=== PATIENT | female | born 1935 | race Caucasian/White ===

== ENCOUNTER 2016-08-15 20:21 | Emergency (ER) | payer MEDICARE ==
[~2016-08-15] VITALS: Ht 170.2 cm; Wt 70.0 kg
[~2016-08-15 20:21] MED LIST: ANTI25TA2 PO; ASPI81 PO; ATOR20TA42 PO; FLON0.053; LORA10TA7 PO; SULF1TAB47 PO; ZOFR4TAB3 SL
[2016-08-15 20:53] VITALS: BP 180/85; PULSE 86; RESP 16; TEMP 97.9; O2SAT 97
[2016-08-15] MEDS ORDERED: LISI10TA3 PO (22:18)
[2016-08-15] MEDS ORDERED: LIPI20TA PO (22:18)
[2016-08-15 22:19] VITALS: BP 180/85; PULSE 86; RESP 18; TEMP 97.9; O2SAT 97
[2016-08-15] MEDS ORDERED: CIPR-9 PO (22:22)
--- NOTE | 2016-08-15 22:33 | PD ---
HPI Chief Complaint: Complaint Time Seen by Provider: 22:11 Travel History International Travel<30 days: No Contact w/Intl Traveler<30days: No Traveled to known affect area: No History of Present Illness HPI Patient is an 81-year-old female who presents to emergency room with complaints of urinary urgency, frequency as well as dysuria. Patient denies hematuria. Patient denies flank pain. Patient reports that she has had these symptoms since July 29, reports that she was seen at urgent care center and was started on ciprofloxacin 250 mg for 10 days. Patient reports that she completed a full course of antibiotics and still had symptoms and went back to urgent care center and reports that her dose was increased to ciprofloxacin 500 mg for 10 days. Patient reports that she is on her last day of her antibiotics and is still symptomatic. Reports that she is here for vacation and can't enjoy it with her urinary symptoms. Patient denies any fevers or chills, denies any nausea or vomiting. Patient denies any abdominal pain. Patient reports that urine cultures were not sent from the urgent care. Patient with no other complaints other than her urinary urgency and frequency which has been ongoing for the past 20 days. PFSH Past Medical History Cardiovascular Problems: Yes High Cholesterol: Yes Hypertension: Yes Respiratory: Yes (ENVIRONMENTAL ALLERGIES- ) ?: Not Menopausal: Yes Past Surgical History Surgical History: No Previous Surgery Social History Alcohol Use: Yes (OCCASIONAL) Tobacco Use: No Substance Use: No Allergies-Medications (Allergen,Severity, Reaction): Coded Allergies: Bactrim (Verified Allergy, Severe, 08/15/16) Peanut (Verified Allergy, Severe, Rash, 08/07/13) Penicillin (Verified Allergy, Severe, HIVES, 08/07/13) Reported Meds & Prescriptions Reported Meds & Active Scripts Active Reported Cipro (Ciprofloxacin HCl) 500 Mg Tab 500 Mg PO BID Lipitor (Atorvastatin Calcium) 20 Mg Tab 20 Mg PO DAILY Lisinopril 10 Mg Tab 10 Mg PO BID Review of Systems General / Constitutional: No: Fever Eyes: No: Visual changes HENT: No: Headaches Cardiovascular: No: Chest Pain or Discomfort Respiratory: No: Shortness of Breath Gastrointestinal: No: Abdominal Pain Genitourinary: Positive: Urgency, Frequency, Dysuria, Hesitancy, No: Discharge , Vaginal Bleeding Musculoskeletal: No: Pain Skin: No Rash Neurologic: No: Weakness Psychiatric: No: Depression Endocrine: No: Polydipsia Hematologic/Lymphatic: No: Easy Bruising Physical Exam Narrative GENERAL: NAD, Nontoxic SKIN: Warm and dry. HEAD: Atraumatic. Normocephalic. EYES: Pupils equal and round. No scleral icterus. No injection or drainage. ENT: No nasal bleeding or discharge. Mucous membranes pink and moist. NECK: Trachea midline. No JVD. CARDIOVASCULAR: Regular rate and rhythm. No murmur appreciated. RESPIRATORY: No accessory muscle use. Clear to auscultation. Breath sounds equal bilaterally. GASTROINTESTINAL: Abdomen soft, non-tender, nondistended. Patient with no flank pain MUSCULOSKELETAL: No obvious deformities. No clubbing. No cyanosis. No edema. NEUROLOGICAL: Awake and alert. No obvious cranial nerve deficits. Motor grossly within normal limits. Normal speech. PSYCHIATRIC: Appropriate mood and affect; insight and judgment normal. Data Data Last Documented VS Vital Signs Date Time Temp Pulse Resp B/P Pulse Ox O2 Delivery O2 Flow Rate FiO2 08/15/16 22:23 86 18 08/15/16 22:19 97.9 180/85 97 Orders Urinalysis - C+S If Indicated (08/15/16 22:18) Urine Culture (08/15/16 22:45) Lidocaine 1% Inj (50 Ml) (Xylocaine 1% I (08/15/16 23:15) Ceftriaxone Inj (Rocephin Inj) (08/15/16 23:15) Labs Laboratory Tests Test 08/15/16 22:45 Urine Color YELLOW Urine Turbidity CLEAR Urine pH 6.0 Urine Specific [place] 1.008 Urine Protein NEG mg/dL Urine Glucose (UA) NEG mg/dL Urine Ketones NEG mg/dL Urine Occult Blood TRACE Urine Nitrite NEG Urine Bilirubin NEG Urine Leukocyte Esterase SMALL Urine RBC 0-3 /hpf Urine WBC 3-5 /hpf Urine WBC Clumps OCC Urine Squamous Epithelial > 8 /hpf Cells Urine Bacteria RARE /hpf Microscopic Urinalysis Comment CULTURE INDICATED MDM Medical Decision Making Medical Screen Exam Complete: Yes Emergency Medical Condition: Yes Interpretation(s) Vital Signs Date Time Temp Pulse Resp B/P Pulse Ox O2 Delivery O2 Flow Rate FiO2 08/15/16 22:23 86 18 08/15/16 22:19 97.9 86 18 180/85 97 08/15/16 20:53 97.9 86 16 180/85 97 Differential Diagnosis UTI, pyelonephritis, cervicitis Narrative Course 81-year-old female who presents to emergency room with complaints of dysuria, urinary urgency or frequency for the past 20 days. Patient has failed outpatient with cipro 250 mg for 10 days as well as Cipro 500 mg for 10 days. Patient here as she still has dysuria, urinary urgency and frequency. Patient with no flank pain at this time, patient with no fevers or chills or any other pains. Plan to obtain UA at this time and sent for urine culture. Laboratory Tests Test 08/15/16 22:45 Urine Color YELLOW (YELLW/STRAW) Urine Turbidity CLEAR (CLEAR) Urine pH 6.0 (5.0-8.5) Urine Specific [place] 1.008 (1.002-1.035) Urine Protein NEG mg/dL (NEG-TRACE) Urine Glucose (UA) NEG mg/dL (NEG) Urine Ketones NEG mg/dL (NEG) Urine Occult Blood TRACE (NEG) Urine Nitrite NEG (NEG) Urine Bilirubin NEG (NEG) Urine Leukocyte Esterase SMALL (NEG) Urine RBC 0-3 /hpf (0-3) Urine WBC 3-5 /hpf (0-5) Urine WBC Clumps OCC (NONE) Urine Squamous Epithelial > 8 /hpf (0-5) Cells Urine Bacteria RARE /hpf (NONE) Microscopic Urinalysis Comment CULTURE INDICATED UC sent Patient reports that she has a history of penicillin allergy, reports that she had a breakout of rash a very long time ago, reports no airway compromise. Plan to give patient a dose of IM Rocephin, will send patient home with a prescription with Macrobid. Patient will follow up with cultures from today. Signs and symptoms of when to return to the emergency room was reviewed with patient in detail. Diagnosis Primary Impression: UTI (urinary tract infection) Qualified Code: N30.01 - Acute cystitis with hematuria Patient Instructions: General Instructions Additional Instructions: Please take all medications as prescribed Return to emergency room if symptoms progress or worsen Please follow-up with cultures from today Pyridium will turn your urine red/orange, please do not be alarmed as this is normal Med/Other Pt SpecificInfo: Prescription(s) given Scripts Nitrofurantoin Monohydrate Macrocrystals (Macrobid)100 Mg [id number] Mg PO BID 10 Days Ref 0 Prov:Lisa Mcclendon DO 08/15/16 Phenazopyridine (Pyridium)100 Mg [id number] Mg PO Q8H PRN (DYSURIA) 3 Days Ref 0 Prov:Lisa Mcclendon DO 08/15/16 Disposition: 01 DISCHARGE HOME Condition: Stable Lisa Mcclendon DO Aug 15, 2016 22:33
[2016-08-15 22:52] LABS: BLOOD, URINE TRACE (NEG); GLUCOSE,URINE NEG (NEG); KETONE, URINE NEG (NEG); NITRITE,URINE NEG (NEG)
[2016-08-15 22:58] LABS: URINE COLOR YELLOW (YELLW/STRAW)
[2016-08-15 22:59] LABS: BACTERIA, URINE RARE /hpf; COMMENT (UR) CULTURE INDICATED; CULTURE IF INDICATED CULTURE INDICATED; RBC, URINE 0-3 /hpf (0-3); SQUAMOUS EPITHELIAL CELL URINE > 8 /hpf (0-5)
[2016-08-15] MEDS ORDERED: LIDOCAINE HCL 1% 50 ML VIAL IM ONE (23:15)
[2016-08-15] MEDS ORDERED: MACR100C2 PO (23:16)
[2016-08-15] MEDS ORDERED: PHEN0.4T PO (23:16)
[2016-08-15 23:30] VITALS: BP 166/66; PULSE 85; RESP 18; O2SAT 97
[2016-08-15] MEDS ORDERED: PHENAZOPYRIDINE HCL 200 MG TAB PO ONE (23:30)
== END 2016-08-16 00:08 | disposition home or self-care (01) ==
LOC: PHED 20:21
DX: N39.0 Urinary tract infection, site not specified (principal)
CPT/HCPCS: 81001; 87086; J0696; 96372

== ENCOUNTER 2017-05-05 22:33 | Emergency (ER) | payer MEDICARE ==
[~2017-05-05] VITALS: Ht 170.2 cm; Wt 69.9 kg
[~2017-05-05 22:33] MED LIST changes: -ANTI25TA2 PO; -ASPI81 PO; -ATOR20TA42 PO; +CIPR-9 PO; -FLON0.053; +LIPI20TA PO; +LISI10TA3 PO; -LORA10TA7 PO; +MACR100C2 PO; +PHEN0.4T PO; -SULF1TAB47 PO; -ZOFR4TAB3 SL
[2017-05-05 22:35] VITALS: BP 211/101; PULSE 98; RESP 16; TEMP 97.5; O2SAT 97
[2017-05-05 22:51] VITALS: BP 211/101; PULSE 98; RESP 16; TEMP 97.5; O2SAT 97
--- NOTE | 2017-05-05 23:01 | PD ---
HPI Chief Complaint: Hypertension Time Seen by Provider: 22:48 Travel History International Travel<30 days: No Contact w/Intl Traveler<30days: No Traveled to known affect area: No History of Present Illness HPI Patient is an 82-year-old female who comes in complaining of high blood pressure. She says she takes her blood pressure twice a day, to see her, to blood pressure medications today. She says sometimes it is too low in the morning, so she has to wait to take her medication, and sometimes it's too high at night so she has to take 2. She says for the past 2 days, her blood pressures been high at night. She took 2 of her lisinopril prior to coming in. She has no symptoms at this time. She denies chest pain, shortness of breath , headache, blurred vision. PFSH Past Medical History Cancer: Yes (Left breast cancer) Cardiovascular Problems: Yes High Cholesterol: Yes Diminished Hearing: No Hypertension: Yes Respiratory: Yes (ENVIRONMENTAL ALLERGIES- ) Immunizations Current: Yes Radiation Therapy: Yes Influenza Vaccination: No ?: Not Menopausal: Yes Past Surgical History Hysterectomy: Yes (Partial) Social History Alcohol Use: Yes (OCCASIONAL) Tobacco Use: No Substance Use: No Allergies-Medications (Allergen,Severity, Reaction): Coded Allergies: ipratropium (Verified Allergy, Severe, Rash, 05/05/17) penicillin G (Verified Allergy, Severe, HIVES, 05/05/17) sulfamethoxazole (Verified Allergy, Severe, 05/05/17) trimethoprim (Verified Allergy, Severe, 05/05/17) Reported Meds & Prescriptions Reported Meds & Active Scripts Active Reported Lipitor (Atorvastatin Calcium) 20 Mg Tab 20 Mg PO DAILY Lisinopril 10 Mg Tab 10 Mg PO BID Review of Systems Except as stated in HPI: all other systems reviewed are Neg General / Constitutional: No: Fever, Chills Eyes: No: Blurred Vision HENT: No: Headaches, Lightheadedness Cardiovascular: No: Chest Pain or Discomfort, Palpitations Respiratory: No: Shortness of Breath Gastrointestinal: No: Nausea, Vomiting Musculoskeletal: No: Edema, Pain Skin: No Rash, No Change in Pigmentation Neurologic: No: Weakness, Dizziness, Syncope Physical Exam Narrative GENERAL: Awake and alert, in no acute distress. SKIN: Focused skin assessment warm/dry. HEAD: Atraumatic. Normocephalic. EYES: Pupils equal and round. No scleral icterus. Extraocular movements intact. ENT: Mucous membranes pink and moist. NECK: Trachea midline. No JVD. CARDIOVASCULAR: Regular rate and rhythm. No murmur appreciated. RESPIRATORY: No accessory muscle use. Clear to auscultation. Breath sounds equal bilaterally. GASTROINTESTINAL: Abdomen soft, non-tender, nondistended. MUSCULOSKELETAL: No obvious deformities. No clubbing. No cyanosis. No edema. NEUROLOGICAL: Awake and alert. No obvious cranial nerve deficits. Motor grossly within normal limits. Normal speech. PSYCHIATRIC: Appropriate mood and affect; insight and judgment normal. Data Data Last Documented VS Vital Signs Date Time Temp Pulse Resp B/P (MAP) Pulse Ox O2 Delivery O2 Flow Rate FiO2 05/05/17 23:44 80 16 180/89 (119) 98 Room Air 05/05/17 22:51 97.5 Orders Orders Iv Access Insert/Monitor (05/05/17 22:54) Complete Blood Count With Diff (05/05/17 22:54) Comprehensive Metabolic Panel (05/05/17 22:54) Troponin I (05/05/17 22:54) Electrocardiogram (05/05/17 ) Labs Laboratory Tests Test 05/05/17 23:10 White Blood Count 6.9 TH/MM3 Red Blood Count 4.14 MIL/MM3 Hemoglobin 12.1 GM/DL Hematocrit 36.7 % Mean Corpuscular Volume 88.8 FL Mean Corpuscular Hemoglobin 29.3 PG Mean Corpuscular Hemoglobin Concent 33.0 % Red Cell Distribution Width 12.9 % Platelet Count 266 TH/MM3 Mean Platelet Volume 8.2 FL Neutrophils (%) (Auto) 53.0 % Lymphocytes (%) (Auto) 31.6 % Monocytes (%) (Auto) 10.7 % Eosinophils (%) (Auto) 3.6 % Basophils (%) (Auto) 1.1 % Neutrophils # (Auto) 3.7 TH/MM3 Lymphocytes # (Auto) 2.2 TH/MM3 Monocytes # (Auto) 0.7 TH/MM3 Eosinophils # (Auto) 0.2 TH/MM3 Basophils # (Auto) 0.1 TH/MM3 CBC Comment DIFF FINAL Differential Comment Blood Urea Nitrogen 21 MG/DL Creatinine 1.40 MG/DL Random Glucose 96 MG/DL Total Protein 7.4 GM/DL Albumin 3.7 GM/DL Calcium Level 8.5 MG/DL Alkaline Phosphatase 106 U/L Aspartate Amino Transf (AST/SGOT) 22 U/L Alanine Aminotransferase (ALT/SGPT) 23 U/L Total Bilirubin 0.4 MG/DL Sodium Level 137 MEQ/L Potassium Level 4.3 MEQ/L Chloride Level 103 MEQ/L Carbon Dioxide Level 25.3 MEQ/L Anion Gap 9 MEQ/L Estimat Glomerular Filtration Rate 36 ML/MIN Troponin I LESS THAN 0.02 NG/ML MDM Medical Decision Making Medical Screen Exam Complete: Yes Emergency Medical Condition: Yes Medical Record Reviewed: Yes Differential Diagnosis Benign essential hypertension versus anxiety versus hypertensive urgency versus hypertensive emergency Narrative Course Patient is an 82-year-old female who comes in complaining of high blood pressure. She currently has no symptoms, and has never had any symptoms. She denies chest pain, shortness of breath, headaches. Exam shows no acute abnormalities. Patient did take 2 lisinopril prior to coming in, her blood pressure lowered on its own. Labs sent show a creatinine of 1.4, no other acute abnormalities. Patient advised she needs to follow-up with her primary doctor for possibly adding an additional blood pressure medication. She is advised of things to look out for and when to return to the emergency department. She is requesting another blood pressure medication. Given a prescription for clonidine to take only at times and her blood pressure is very elevated, 200 systolic. She is advised to return any time for any symptoms she may have. She and her are comfortable with discharge at this time. Diagnosis Primary Impression: Hypertension Qualified Codes: I10 - Essential (primary) hypertension Patient Instructions: General Instructions, Hypertension (ED) Additional Instructions: Follow-up with your primary care doctor as she may need a second blood pressure medication. You can take clonidine if her blood pressure is very high, over 180 systolic. Return any time for any symptoms. Scripts Clonidine (Clonidine) 0.2 Mg Tab 0.2 MG PO BID for Blood Pressure Management, #15 TAB 0 Refills Prov: Madeline Emanuel MD 05/06/17 Disposition: DISCHARGE HOME Condition: Stable Madeline Emanuel MD May 05, 2017 23:01
[2017-05-05 23:20] LABS: AUTOMATED NEUTROPHIL # 3.7 TH/MM3 (1.8-7.7); BASOPHIL # 0.1 TH/MM3 (0-0.2); BASOPHIL % 1.1 % (0.0-2.0); EOSINOPHIL # 0.2 TH/MM3 (0-0.4); EOSINOPHIL % 3.6 % (0.0-4.0); HEMATOCRIT 36.7 % (35.0-46.0); HEMO FLAGS DIFF FINAL; LYMPH % 31.6 % (9.0-44.0); LYMPHOCYTE # 2.2 TH/MM3 (1.0-4.8); MEAN CELL VOLUME 88.8 FL (80.0-100.0); MEAN CORPUSCULAR HEMOGLOBIN 29.3 PG (27.0-34.0); MONO % 10.7 % (0.0-8.0); PLATELET COUNT 266 TH/MM3 (150-450); RED BLOOD COUNT 4.14 MIL/MM3 (4.00-5.30); RED CELL DISTRIBUTION WIDTH 12.9 % (11.6-17.2); WHITE BLOOD COUNT 6.9 TH/MM3 (4.0-11.0)
[2017-05-05 23:32] LABS: CHLORIDE 103 MEQ/L (98-107); POTASSIUM 4.3 MEQ/L (3.5-5.1); SODIUM (NA) 137 MEQ/L (136-145)
[2017-05-05 23:35] LABS: ANION GAP 9 MEQ/L (5-15); BICARBONATE 25.3 MEQ/L (21.0-32.0); BLOOD UREA NITROGEN 21 MG/DL (7-18)
[2017-05-05 23:38] LABS: ALT (GPT) 23 U/L (10-53)
[2017-05-05 23:39] LABS: AST (GOT) 22 U/L (15-37); GLOMERULAR FILTRATION RATE 36 ML/MIN (>89)
[2017-05-05 23:40] LABS: TOTAL BILIRUBIN ADULT 0.4 MG/DL (0.2-1.0)
[2017-05-05 23:41] LABS: ALKALINE PHOSPHATASE 106 U/L (45-117)
[2017-05-05 23:44] VITALS: BP 180/89; PULSE 80; RESP 16; O2SAT 98
[2017-05-06] MEDS ORDERED: CLON0.2T PO (00:04)
[2017-05-06] MEDS ORDERED: cloNIDine HCL 0.2 MG TAB PO ONE (00:15)
[2017-05-06 00:21] VITALS: BP 176/86
--- NOTE | 2017-05-06 11:51 | EKG ---
Date Performed: 05/05/2017 Time Performed: 23:03:35 PTAGE: 82 years EKG: Sinus rhythm NORMAL ECG Compared to prior tracing no significant change PREVIOUS TRACING : 08/08/2013 00.19 DOCTOR: Ayden Mckeon Interpretating Date/Time 05/06/2017 11:50:51
== END 2017-05-06 00:49 | disposition home or self-care (01) ==
LOC: PHED 22:33
DX: I10 Essential (primary) hypertension (principal); E78.00 Pure hypercholesterolemia, unspecified; Z85.3 Personal history of malignant neoplasm of breast
CPT/HCPCS: 80053; 84484; 85025; 93005; 99284

== ENCOUNTER 2017-06-13 19:24 | Emergency (ER) | payer MEDICARE ==
[2017-06-13] MEDS: SODIUM CHLORID 0.9% 500 ML INJ 500 ML IV (21:24)
[2017-06-13] MEDS: FAMOTIDINE 20 MG/2 ML VIAL IV PUSH (21:24)
[2017-06-13 21:45] LABS: AUTOMATED NEUTROPHIL # 6.4 TH/MM3 (1.8-7.7); BASOPHIL # 0.1 TH/MM3 (0-0.2); BASOPHIL % 0.7 % (0.0-2.0); EOSINOPHIL # 0.1 TH/MM3 (0-0.4); HEMATOCRIT 35.7 % (35.0-46.0); HEMO FLAGS DIFF FINAL; HEMOGLOBIN 12.4 GM/DL (11.6-15.3); LYMPH % 19.7 % (9.0-44.0); LYMPHOCYTE # 1.8 TH/MM3 (1.0-4.8); MEAN CORPUSCULAR HGB CONC 34.8 % (32.0-36.0); MEAN PLATELET VOLUME 8.3 FL (7.0-11.0); MONO % 8.7 % (0.0-8.0); MONOCYTE # 0.8 TH/MM3 (0-0.9); NEUT % 69.9 % (16.0-70.0); PLATELET COUNT 393 TH/MM3 (150-450); RED BLOOD COUNT 4.14 MIL/MM3 (4.00-5.30); RED CELL DISTRIBUTION WIDTH 12.7 % (11.6-17.2); WHITE BLOOD COUNT 9.2 TH/MM3 (4.0-11.0)
[2017-06-13 21:51] LABS: BILIRUBIN, URINE NEG (NEG); BLOOD, URINE NEG (NEG); GLUCOSE,URINE NEG (NEG); KETONE, URINE NEG (NEG); NITRITE,URINE NEG (NEG); SQUAMOUS EPITHELIAL CELL URINE 3 /hpf (0-5); URINE COLOR YELLOW (YELLW/STRAW); URINE LEUKOCYTE ESTERASE SMALL (NEG)
[2017-06-13 21:54] LABS: COMMENT (UR) CULT NOT INDICATED; CULTURE IF INDICATED CULT NOT INDICATED
[2017-06-13 22:04] LABS: ALBUMIN 4.2 GM/DL (3.4-5.0); ANION GAP 7 MEQ/L (5-15); AST (GOT) 16 U/L (15-37); BICARBONATE 29.7 MEQ/L (21.0-32.0); BLOOD UREA NITROGEN 19 MG/DL (7-18); CALCIUM 9.5 MG/DL (8.5-10.1); CHLORIDE 90 MEQ/L (98-107); CREATININE 1.32 MG/DL (0.50-1.00); GLOMERULAR FILTRATION RATE 38 ML/MIN (>89); GLUCOSE,RANDOM 122 MG/DL (74-106); POTASSIUM 3.7 MEQ/L (3.5-5.1); SODIUM (NA) 127 MEQ/L (136-145)
[2017-06-13 22:08] LABS: ALKALINE PHOSPHATASE 106 U/L (45-117); ALT (GPT) 19 U/L (10-53); TOTAL BILIRUBIN ADULT 0.6 MG/DL (0.2-1.0); TOTAL PROTEIN 7.9 GM/DL (6.4-8.2)
[2017-06-13] MEDS: cefTRIAXone INJ 1,000 MG in SODIUM CHLORIDE 0.9% INJ 25 ML IV (22:45)
== END 2017-06-13 23:25 | disposition home or self-care (01) ==
LOC: NEPC 19:24
DX: K29.70 Gastritis, unspecified, without bleeding (principal); N39.0 Urinary tract infection, site not specified; K21.9 Gastro-esophageal reflux disease without esophagitis; M54.5 Low back pain; R06.02 Shortness of breath; I10 Essential (primary) hypertension; E78.00 Pure hypercholesterolemia, unspecified
CPT/HCPCS: 80053; 81001; 85025; 96361; 96365; 96375; 99284-25

== ENCOUNTER 2017-06-22 02:31 | Emergency (ER) | payer MEDICARE ==
[~2017-06-22 02:31] MED LIST changes: +ASPI-516 CHEW; -CIPR-9 PO; +CLAR10TA7; +FAMO1TAB37 PO; +HYDR25TA5 PO; +LACTCAP8 PO; -MACR100C2 PO; +NITR1CAP36 PO; -PHEN0.4T PO
[2017-06-22 02:32] VITALS: BP 208/86; PULSE 108; RESP 16; TEMP 97.9; O2SAT 98
[2017-06-22] MEDS ORDERED: MAGN250T11 PO (02:49)
[2017-06-22] MEDS ORDERED: VITA200C3 PO (02:49)
[2017-06-22] MEDS ORDERED: VITACAP7 PO (02:49)
[2017-06-22] MEDS ORDERED: SODIUM CHLORIDE 0.9% FLUSH 10 ML FLUSH IV FLUSH PRN (03:00)
[2017-06-22 03:32] LABS: BILIRUBIN, URINE NEG (NEG); BLOOD, URINE NEG (NEG); GLUCOSE,URINE NEG (NEG); KETONE, URINE NEG (NEG); MUCUS URINE FEW /lpf (OCC); NITRITE,URINE NEG (NEG); PH, URINE 6.5 (5.0-8.5); SQUAMOUS EPITHELIAL CELL URINE 1 /hpf (0-5); URINE COLOR LIGHT-YELLOW (YELLW/STRAW); URINE LEUKOCYTE ESTERASE LARGE (NEG)
[2017-06-22 03:46] LABS: AUTOMATED NEUTROPHIL # 4.2 TH/MM3 (1.8-7.7); BASOPHIL # 0.1 TH/MM3 (0-0.2); BASOPHIL % 1.3 % (0.0-2.0); EOSINOPHIL # 0.2 TH/MM3 (0-0.4); EOSINOPHIL % 1.9 % (0.0-4.0); HEMOGLOBIN 12.9 GM/DL (11.6-15.3); LYMPHOCYTE # 2.7 TH/MM3 (1.0-4.8); MEAN CELL VOLUME 86.6 FL (80.0-100.0); MEAN CORPUSCULAR HEMOGLOBIN 30.3 PG (27.0-34.0); MEAN PLATELET VOLUME 8.3 FL (7.0-11.0); MONO % 9.7 % (0.0-8.0); MONOCYTE # 0.8 TH/MM3 (0-0.9); NEUT % 53.1 % (16.0-70.0); PLATELET COUNT 396 TH/MM3 (150-450); RED BLOOD COUNT 4.27 MIL/MM3 (4.00-5.30); RED CELL DISTRIBUTION WIDTH 13.3 % (11.6-17.2); WHITE BLOOD COUNT 7.8 TH/MM3 (4.0-11.0)
[2017-06-22] MEDS ORDERED: CIPR250T52 PO (03:53)
--- NOTE | 2017-06-22 03:53 | PD ---
HPI Chief Complaint: Complaint Time Seen by Provider: 02:47 Travel History International Travel<30 days: No Contact w/Intl Traveler<30days: No Traveled to known affect area: No History of Present Illness HPI 82-year-old female complains of pressure in the bladder and dysuria for about 1 day. Onset gradual. Severity moderate. No modifying factor. PFSH Past Medical History Medical History: Denies Significant Hx Cancer: Yes (Left breast cancer) Cardiovascular Problems: Yes High Cholesterol: Yes Diminished Hearing: No Hypertension: Yes Respiratory: Yes (ENVIRONMENTAL ALLERGIES- ) Immunizations Current: Yes Radiation Therapy: Yes Menopausal: Yes Past Surgical History Surgical History: No Previous Surgery Hysterectomy: Yes (Partial) Social History Alcohol Use: No Tobacco Use: No Substance Use: No Allergies-Medications (Allergen,Severity, Reaction): Coded Allergies: ipratropium (Verified Allergy, Severe, Rash, 06/22/17) peanut (Verified Allergy, Severe, 06/22/17) SOB penicillin G (Verified Allergy, Severe, HIVES, 06/22/17) sulfamethoxazole (Verified Allergy, Severe, 06/22/17) trimethoprim (Verified Allergy, Severe, 06/22/17) Reported Meds & Prescriptions Reported Meds & Active Scripts Active Macrobid (Nitrofurantoin Monohydrate Macrocrystals) 100 Mg Capsule 100 Mg PO BID 10 Days Pepcid (Famotidine) 20 Mg Tab 20 Mg PO BID Probiotic (Lactobacillus Acidophilus) 10 Billion Cell Cap 1 Cap PO TIDAC Reported B Complex (B-Complex Vitamins) 1 Cap 1 Cap PO DAILY Magnesium Oxide 250 Mg Tab 250 Mg PO DAILY Vitamin E 200 Unit Cap 400 Units PO DAILY Aspirin 81 Mg Chew 81 Mg CHEW DAILY Hydrochlorothiazide 25 Mg Tab 25 Mg PO DAILY Claritin (Loratadine) 10 Mg Tablet 12 Lipitor (Atorvastatin Calcium) 20 Mg Tab 20 Mg PO DAILY Lisinopril 10 Mg Tab 10 Mg PO BID Review of Systems Except as stated in HPI: all other systems reviewed are Neg Physical Exam Narrative GENERAL: 82-year-old female pleasant no acute distress SKIN: Warm and dry. HEAD: Atraumatic. Normocephalic. EYES: Pupils equal and round. No scleral icterus. No injection or drainage. ENT: No nasal bleeding or discharge. Mucous membranes pink and moist. NECK: Trachea midline. No JVD. CARDIOVASCULAR: Regular rate and rhythm. RESPIRATORY: No accessory muscle use. Clear to auscultation. Breath sounds equal bilaterally. GASTROINTESTINAL: Abdomen soft, non-tender, nondistended. Hepatic and splenic margins not palpable. MUSCULOSKELETAL: Extremities without clubbing, cyanosis, or edema. No obvious deformities. NEUROLOGICAL: Awake and alert. No obvious cranial nerve deficits. Motor grossly within normal limits. Five out of 5 muscle strength in the arms and legs. Normal speech. PSYCHIATRIC: Appropriate mood and affect; insight and judgment normal. Data Data Last Documented VS Vital Signs Date Time Temp Pulse Resp B/P (MAP) Pulse Ox O2 Delivery O2 Flow Rate FiO2 06/22/17 02:32 97.9 108 16 208/86 (126) 98 Room Air Orders Orders Complete Blood Count With Diff (06/22/17 02:47) Comprehensive Metabolic Panel (06/22/17 02:47) Lipase (06/22/17 02:47) Urinalysis - C+S If Indicated (06/22/17 02:47) Iv Access Insert/Monitor (06/22/17 02:47) Ecg Monitoring (06/22/17 02:47) Oximetry (06/22/17 02:47) Sodium Chloride 0.9% Flush (Ns Flush) (06/22/17 03:00) Urine Culture (06/22/17 02:50) Ciprofloxacin (Cipro) (06/22/17 04:00) Ed Discharge Order (06/22/17 03:59) Nitrofurantoin Monohyd Macrocr (Macrobid (06/22/17 04:15) Labs Laboratory Tests Test 06/22/17 02:50 White Blood Count 7.8 TH/MM3 Red Blood Count 4.27 MIL/MM3 Hemoglobin 12.9 GM/DL Hematocrit 37.0 % Mean Corpuscular Volume 86.6 FL Mean Corpuscular Hemoglobin 30.3 PG Mean Corpuscular Hemoglobin Concent 35.0 % Red Cell Distribution Width 13.3 % Platelet Count 396 TH/MM3 Mean Platelet Volume 8.3 FL Neutrophils (%) (Auto) 53.1 % Lymphocytes (%) (Auto) 34.0 % Monocytes (%) (Auto) 9.7 % Eosinophils (%) (Auto) 1.9 % Basophils (%) (Auto) 1.3 % Neutrophils # (Auto) 4.2 TH/MM3 Lymphocytes # (Auto) 2.7 TH/MM3 Monocytes # (Auto) 0.8 TH/MM3 Eosinophils # (Auto) 0.2 TH/MM3 Basophils # (Auto) 0.1 TH/MM3 CBC Comment DIFF FINAL Differential Comment Urine Color LIGHT-YELLOW Urine Turbidity CLEAR Urine pH 6.5 Urine Specific [place] 1.005 Urine Protein NEG mg/dL Urine Glucose (UA) NEG mg/dL Urine Ketones NEG mg/dL Urine Occult Blood NEG Urine Nitrite NEG Urine Bilirubin NEG Urine Urobilinogen LESS THAN 2.0 MG/DL Urine Leukocyte Esterase LARGE Urine RBC LESS THAN 1 /hpf Urine WBC 12 /hpf Urine Squamous Epithelial Cells 1 /hpf Urine Mucus FEW /lpf Microscopic Urinalysis Comment CULTURE INDICATED Blood Urea Nitrogen 19 MG/DL Creatinine 1.35 MG/DL Random Glucose 105 MG/DL Total Protein 8.1 GM/DL Albumin 4.2 GM/DL Calcium Level 9.4 MG/DL Alkaline Phosphatase 111 U/L Aspartate Amino Transf (AST/SGOT) 24 U/L Alanine Aminotransferase (ALT/SGPT) 23 U/L Total Bilirubin 0.6 MG/DL Sodium Level 132 MEQ/L Potassium Level 4.1 MEQ/L Chloride Level 96 MEQ/L Carbon Dioxide Level 29.8 MEQ/L Anion Gap 6 MEQ/L Estimat Glomerular Filtration Rate 37 ML/MIN Lipase 241 U/L MDM Medical Decision Making Medical Screen Exam Complete: Yes Emergency Medical Condition: Yes Medical Record Reviewed: Yes Differential Diagnosis Gastritis, pancreatitis, appendicitis, acute cholecystitis, ascending cholangitis, AAA, perforated viscous, mesenteric ischemia, hepatitis, cystitis, hydronephrosis/hydroureter/nephroureter calculus, mesenteric adenitis, biliary colic Narrative Course CBC & BMP Diagram 06/22/17 02:50 Total Protein 8.1, Albumin 4.2, Calcium Level 9.4, Alkaline Phosphatase 111, Aspartate Amino Transf (AST/SGOT) 24, Alanine Aminotransferase (ALT/SGPT) 23, Total Bilirubin 0.6 Urinalysis shows UTI Macrobid script Diagnosis Primary Impression: UTI (urinary tract infection) Qualified Codes: N39.0 - Urinary tract infection, site not specified Referrals: Primary Care Physician 2 days Med/Other Pt SpecificInfo: Prescription(s) given Scripts Nitrofurantoin Monohydrate Macrocrystals (Macrobid) 100 Mg Capsule 100 MG PO BID for Infection for 10 Days, #20 CAP 0 Refills Prov: Spencer Nava MD 06/22/17 Disposition: 01 DISCHARGE HOME Condition: Stable Spencer Nava MD Jun 22, 2017 03:53
[2017-06-22 03:59] LABS: ALBUMIN 4.2 GM/DL (3.4-5.0); ALT (GPT) 23 U/L (10-53); AST (GOT) 24 U/L (15-37); BICARBONATE 29.8 MEQ/L (21.0-32.0); BLOOD UREA NITROGEN 19 MG/DL (7-18); CALCIUM 9.4 MG/DL (8.5-10.1); CHLORIDE 96 MEQ/L (98-107); CREATININE 1.35 MG/DL (0.50-1.00); GLOMERULAR FILTRATION RATE 37 ML/MIN (>89); GLUCOSE,RANDOM 105 MG/DL (74-106); LIPASE 241 U/L (73-393); SODIUM (NA) 132 MEQ/L (136-145)
[2017-06-22] MEDS ORDERED: CIPROFLOXACIN 500 MG TAB PO ONE (04:00)
[2017-06-22 04:01] LABS: ALKALINE PHOSPHATASE 111 U/L (45-117); TOTAL BILIRUBIN ADULT 0.6 MG/DL (0.2-1.0); TOTAL PROTEIN 8.1 GM/DL (6.4-8.2)
[2017-06-22] MEDS ORDERED: MACR100C2 PO (04:03)
[2017-06-22] MEDS ORDERED: NITROFURANTOIN MONOHYD MACROCR 100 MG CAP PO ONE (04:15)
== END 2017-06-22 04:32 | disposition home or self-care (01) ==
LOC: NEPE 02:31
DX: N39.0 Urinary tract infection, site not specified (principal); E78.00 Pure hypercholesterolemia, unspecified; I10 Essential (primary) hypertension
CPT/HCPCS: 80053; 81001; 83690; 85025; 87086; 99283

== ENCOUNTER 2017-07-25 00:02 | Observation (INO) | payer MEDICARE ==
[2017-07-25] VITALS (13 sets, daily range): BP systolic 134–187; BP diastolic 70–84; PULSE 70–96; RESP 18–20; TEMP 96–97.8; O2SAT 94–99
[~2017-07-25] VITALS: Ht 167.6 cm; Wt 67.8 kg
[~2017-07-25 00:02] MED LIST changes: +MACR100C2 PO; +MAGN250T11 PO; -NITR1CAP36 PO; +VITA200C3 PO; +VITACAP7 PO
--- NOTE | 2017-07-25 00:29 | PD ---
HPI Chief Complaint: Respiratory Symptoms Time Seen by Provider: 00:22 Travel History International Travel<30 days: No Contact w/Intl Traveler<30days: No Traveled to known affect area: No History of Present Illness HPI 82-year-old female presents to the emergency department by private transportation for complaint of shortness of breath. Patient has history of hypertension and dyslipidemia. Patient recently traveled here from [place]. Patient denies any lotion any pain or swelling. Patient denies any pleuritic pain. Patient has no chest pain. No referred neck jaw back shoulder arm or shoulder pain. No nausea or vomiting. No hemoptysis or productive cough. No fever or chills. No prior history of clotting disorder. Remote history of breast cancer. Patient reports symptoms began just as she was beginning to lie down to go to bed. Patient has not felt well for 2 days and was seen by local primary care provider for dizziness and head ears evaluated and was told she had some blood in her urine blood in her nose. Patient was not started on new medication. PFSH Past Medical History Narrative Medical Hypertension dyslipidemia breast cancer partial hysterectomy no tobacco use no alcohol use nursing notes reviewed Cancer: Yes (Left breast cancer) Cardiovascular Problems: Yes High Cholesterol: Yes Diminished Hearing: No Hypertension: Yes Respiratory: Yes (ENVIRONMENTAL ALLERGIES- ) Immunizations Current: Yes Radiation Therapy: Yes Menopausal: Yes Past Surgical History Hysterectomy: Yes (Partial) Social History Alcohol Use: No Tobacco Use: No Substance Use: No Allergies-Medications (Allergen,Severity, Reaction): Coded Allergies: ciprofloxacin (Verified Allergy, Severe, Chest Pain, 07/25/17) high hr ipratropium (Verified Allergy, Severe, Rash, 07/25/17) peanut (Verified Allergy, Severe, 07/25/17) SOB penicillin G (Verified Allergy, Severe, HIVES, 07/25/17) sulfamethoxazole (Verified Allergy, Severe, 07/25/17) trimethoprim (Verified Allergy, Severe, 07/25/17) Reported Meds & Prescriptions Reported Meds & Active Scripts Active Pepcid (Famotidine) 20 Mg Tab 20 Mg PO BID Probiotic (Lactobacillus Acidophilus) 10 Billion Cell Cap 1 Cap PO TIDAC Reported B Complex (B-Complex Vitamins) 1 Cap 1 Cap PO DAILY Magnesium Oxide 250 Mg Tab 250 Mg PO DAILY Vitamin E 200 Unit Cap 400 Units PO DAILY Aspirin 81 Mg Chew 81 Mg CHEW DAILY Hydrochlorothiazide 25 Mg Tab 25 Mg PO DAILY Claritin (Loratadine) 10 Mg Tablet 12 Lipitor (Atorvastatin Calcium) 20 Mg Tab 20 Mg PO DAILY Lisinopril 10 Mg Tab 10 Mg PO BID Review of Systems Except as stated in HPI: all other systems reviewed are Neg General / Constitutional: No: Fever, Chills HENT: No: Congestion Cardiovascular: No: Chest Pain or Discomfort Respiratory: Positive: Shortness of Breath Gastrointestinal: No: Nausea, Vomiting, Abdominal Pain Genitourinary: No: Dysuria Skin: No Rash Neurologic: No: Weakness Psychiatric: No: Anxiety Hematologic/Lymphatic: No: Lymph Node Enlargement Physical Exam Narrative GENERAL: Well-developed well-nourished female no acute distress or respiratory distress; GCS 15 triage vital signs grossly normal range except for elevated blood pressure SKIN: Warm and dry. HEAD: Normocephalic. EYES: No scleral icterus. No injection or drainage. NECK: Supple, trachea midline. No JVD or lymphadenopathy. CARDIOVASCULAR: Regular rate and rhythm without murmurs, gallops, or rubs. RESPIRATORY: Breath sounds equal bilaterally. No accessory muscle use. GASTROINTESTINAL: Abdomen soft, non-tender, nondistended. MUSCULOSKELETAL: No cyanosis, or edema. BACK: Nontender without obvious deformity. No CVA tenderness. Data Data Last Documented VS Vital Signs Date Time Temp Pulse Resp B/P (MAP) Pulse Ox O2 Delivery O2 Flow Rate FiO2 07/25/17 03:58 86 20 144/72 (96) 98 Nasal Cannula 2.00 3 00:27 97.0 Orders Orders Complete Blood Count With Diff (07/25/17 00:22) Comprehensive Metabolic Panel (07/25/17:22) B-Type Natriuretic Peptide (07/25/17 00:22) Act Partial Throm Time (Ptt) (07/25/17:22) Prothrombin Time / Inr (Pt) (07/25/17:22) Magnesium (Mg) (07/25/17:22) Ckmb (Isoenzyme) Profile (07/25/17 00:22) Troponin I (07/25/17:22) Urinalysis - C+S If Indicated (07/25/17:22) Iv Access Insert/Monitor (07/25/17 00:22) Electrocardiogram (07/25/17:22) Ecg Monitoring (07/25/17 00:22) Oximetry (07/25/17 00:22) Oxygen Administration (07/25/17 00:22) Chest, Single Ap (07/25/17 00:22) Sodium Chloride 0.9% Flush (Ns Flush) (07/25/17 00:30) Aspirin Chew (Aspirin Chew) (07/25/17 00:30) D-Dimer (07/25/17 00:40) Ct Pulmonary Angiogram (07/25/17 ) Urine Culture (07/25/17 02:30) Iodixanol 320 Inj (Rad Ct) (Visipaque 32 (07/25/17 03:00) Nitroglycerin Sl (Nitrostat Sl) (07/25/17 03:30) Troponin I (07/25/17 03:31) Ckmb (Isoenzyme) Profile (07/25/17 03:31) Electrocardiogram (07/25/17 ) Admit Order (Ed Use Only) (07/25/17 ) Table Games Manager / Telemetry MIKE.Q8H (07/25/17 03:48) Diet Heart Healthy (07/25/17 Breakfast) Activity Oob With Assistance (07/25/17 03:48) Notify Dr: Other (07/25/17 03:48) Activity Bed Rest With Brp (07/25/17 03:48) Vital Signs (Adult) Q4H (07/25/17 03:48) Cardiac Rhythm .As Directed (07/25/17 03:48) Notify Dr: Other .PRN (07/25/17 03:48) Notify Parameters (07/25/17 03:48) Resp Oxygen Nasal Cannula (07/25/17 ) Ckmb (Isoenzyme) Profile (07/25/17 07:00) Troponin I (07/25/17 07:00) Electrocardiogram (07/25/17 07:00) ^ Obtain (07/25/17 03:48) Sodium Chloride 0.9% Flush (Ns Flush) (07/25/17 04:00) Sodium Chloride 0.9% Flush (Ns Flush) (07/25/17 09:00) Nitroglycerin Sl (Nitrostat Sl) (07/25/17 04:00) Aspirin (Aspirin) (07/25/17 09:00) Table Games Manager / Telemetry MIKE.Q8H (07/25/17 03:48) Aspirin Chew (Aspirin Chew) (07/25/17 09:00) Atorvastatin (Lipitor) (07/25/17 09:00) Famotidine (Pepcid) (07/25/17 09:00) Hydrochlorothiazide (Hydrodiuril) (07/25/17 09:00) Lisinopril (Prinivil) (07/25/17 09:00) Place In Observation (07/25/17 ) Labs Laboratory Tests Test 07/25/17 00:40 07/25/17 02:30 07/25/17 03:40 White Blood Count 7.0 TH/MM3 Red Blood Count 3.77 MIL/MM3 Hemoglobin 11.6 GM/DL Hematocrit 33.0 % Mean Corpuscular Volume 87.5 FL Mean Corpuscular Hemoglobin 30.7 PG Mean Corpuscular Hemoglobin Concent 35.0 % Red Cell Distribution Width 13.1 % Platelet Count 313 TH/MM3 Mean Platelet Volume 8.2 FL Neutrophils (%) (Auto) 65.4 % Lymphocytes (%) (Auto) 23.4 % Monocytes (%) (Auto) 9.5 % Eosinophils (%) (Auto) 0.9 % Basophils (%) (Auto) 0.8 % Neutrophils # (Auto) 4.5 TH/MM3 Lymphocytes # (Auto) 1.6 TH/MM3 Monocytes # (Auto) 0.7 TH/MM3 Eosinophils # (Auto) 0.1 TH/MM3 Basophils # (Auto) 0.1 TH/MM3 CBC Comment DIFF FINAL Differential Comment Prothrombin Time 9.6 SEC Prothromb Time International Ratio 0.9 RATIO Activated Partial Thromboplast Time 25.0 SEC D-Dimer Quantitative (PE/DVT) 0.52 MG/L FEU Blood Urea Nitrogen 21 MG/DL Creatinine 1.40 MG/DL Random Glucose 119 MG/DL Total Protein 7.0 GM/DL Albumin 3.6 GM/DL Calcium Level 9.0 MG/DL Magnesium Level 2.8 MG/DL Alkaline Phosphatase 95 U/L Aspartate Amino Transf (AST/SGOT) 15 U/L Alanine Aminotransferase (ALT/SGPT) 20 U/L Total Bilirubin 0.4 MG/DL Sodium Level 134 MEQ/L Potassium Level 3.8 MEQ/L Chloride Level 96 MEQ/L Carbon Dioxide Level 31.0 MEQ/L Anion Gap 7 MEQ/L Estimat Glomerular Filtration Rate 36 ML/MIN Total Creatine Kinase 67 U/L Troponin I LESS THAN 0.02 NG/ML B-Type Natriuretic Peptide 34 PG/ML Urine Color YELLOW Urine Turbidity CLEAR Urine pH 7.5 Urine Specific [place] 1.010 Urine Protein NEG mg/dL Urine Glucose (UA) NEG mg/dL Urine Ketones NEG mg/dL Urine Occult Blood NEG Urine Nitrite NEG Urine Bilirubin NEG Urine Urobilinogen 0.2 MG/DL Urine Leukocyte Esterase MOD Urine RBC 0-2 /hpf Urine WBC 9-14 /hpf Urine Squamous Epithelial Cells 6-8 /hpf Urine Bacteria OCC /hpf Microscopic Urinalysis Comment CULTURE INDICATED MDM Medical Decision Making Medical Screen Exam Complete: Yes Emergency Medical Condition: Yes Medical Record Reviewed: Yes Interpretation(s) EKG: Normal sinus rhythm rate [address] elevation injury pattern or ectopy noted Last Impressions Chest X-Ray 07/25/17 0022 Signed Impressions: Service Date/Time: Tuesday, July 25, 2017 00:54 - CONCLUSION: Bilateral pulmonary granulomata. The lungs are clear. Juan Antonio Arreola MD CT Angiography 07/25/17 0000 Signed Impressions: Service Date/Time: Tuesday, July 25, 2017 02:48 - CONCLUSION: 1. The study is negative for pulmonary embolism. 2. Granulomatous calcifications in the left lung and left hilum. Juan Antonio Arreola MD CBC & BMP Diagram 07/25/17 00:40 Total Protein 7.0, Albumin 3.6, Calcium Level 9.0, Magnesium Level 2.8 H, Alkaline Phosphatase 95, Aspartate Amino Transf (AST/SGOT) 15, Alanine Aminotransferase (ALT/SGPT) 20, Total Bilirubin 0.4 Vital Signs Date Time Temp Pulse Resp B/P (MAP) Pulse Ox O2 Delivery O2 Flow Rate FiO2 07/25/17 02:22 80 20 163/73 (103) 98 07/25/17 01:52 74 18 150/75 (100) 98 07/25/17 01:08 92 20 98 07/25/17 00:28 98 Nasal Cannula 2.00 07/25/17 00:27 97.0 96 20 170/84 (112) 07/25/17 00:07 97.8 86 20 187/80 (115) 96 troponin I: less than 0.02. not elevated; ck: 67 Differential Diagnosis Dyspnea, CHF, PE, ACS, uncontrolled hypertension, aortic dissection Narrative Course Patient placed on cardiac technician with continuous pulse oximetry room air pulse oximetry 97% EKG ordered and specimens collected and sent for resulting EKG is sinus rhythm with no acute injury pattern change patient administer aspirin Lab values found to be grossly within normal range except mild renal insufficiency and first set of cardiac enzymes are normal patient continues complain of shortness of breath and d-dimer is elevated therefore patient sent for CT pulmonary injury CT is negative for PE because of continued complaint of sensation of shortness of breath with normal room air O2 saturations patient administered sublingual nitroglycerin and with plan to admit to chest pain center per chest pain center protocol as anginal equivalent as patient is 82 female with hypertension and dyslipidemia risk factors patient discussed with [facility] for [facility] Physician Communication Physician Communication call placed to [facility] service Diagnosis Primary Impression: Dyspnea Qualified Codes: R06.02 - Shortness of breath Additional Impression: Anginal equivalent Admitting Information Admitting Physician Requests: Observation Sherice Hu MD Jul 25, 2017 00:28
[2017-07-25] MEDS ORDERED: ASPIRIN 81 MG CHEW TAB CHEW ONE (00:30)
[2017-07-25] MEDS ORDERED: SODIUM CHLORIDE 0.9% FLUSH 10 ML FLUSH IVF PRN (00:30)
[2017-07-25 00:59] LABS: AUTOMATED NEUTROPHIL # 4.5 TH/MM3 (1.8-7.7); BASOPHIL # 0.1 TH/MM3 (0-0.2); BASOPHIL % 0.8 % (0.0-2.0); EOSINOPHIL # 0.1 TH/MM3 (0-0.4); EOSINOPHIL % 0.9 % (0.0-4.0); HEMOGLOBIN 11.6 GM/DL (11.6-15.3); LYMPH % 23.4 % (9.0-44.0); LYMPHOCYTE # 1.6 TH/MM3 (1.0-4.8); MEAN CELL VOLUME 87.5 FL (80.0-100.0); MEAN CORPUSCULAR HEMOGLOBIN 30.7 PG (27.0-34.0); MEAN PLATELET VOLUME 8.2 FL (7.0-11.0); MONO % 9.5 % (0.0-8.0); MONOCYTE # 0.7 TH/MM3 (0-0.9); NEUT % 65.4 % (16.0-70.0); PLATELET COUNT 313 TH/MM3 (150-450); RED BLOOD COUNT 3.77 MIL/MM3 (4.00-5.30); RED CELL DISTRIBUTION WIDTH 13.1 % (11.6-17.2)
[2017-07-25 01:06] LABS: CHLORIDE 96 MEQ/L (98-107); SODIUM (NA) 134 MEQ/L (136-145)
[2017-07-25 01:10] LABS: ALBUMIN 3.6 GM/DL (3.4-5.0); BLOOD UREA NITROGEN 21 MG/DL (7-18); GLUCOSE,RANDOM 119 MG/DL (74-106); INTERNATIONAL NORMALIZED RATIO 0.9 RATIO; MAGNESIUM 2.8 MG/DL (1.5-2.5); PROTHROMBIN TIME - PATIENT 9.6 SEC (9.8-11.6)
[2017-07-25 01:13] LABS: ALT (GPT) 20 U/L (10-53); AST (GOT) 15 U/L (15-37); GLOMERULAR FILTRATION RATE 36 ML/MIN (>89)
[2017-07-25 01:15] LABS: TOTAL BILIRUBIN ADULT 0.4 MG/DL (0.2-1.0)
[2017-07-25 01:16] LABS: ALKALINE PHOSPHATASE 95 U/L (45-117)
[2017-07-25 01:18] LABS: TROPONIN I LESS THAN 0.02 NG/ML (0.02-0.05)
--- NOTE | 2017-07-25 01:25 | RADRPT ---
EXAM DATE/TIME: 07/25/2017 00:54 [facility] COMPARISON: CHEST SINGLE AP, August 08, 2013, 0:03. INDICATIONS : Shortness of breath MEDICAL HISTORY : None. SURGICAL HISTORY : None. ENCOUNTER: Initial ACUITY: 1 day PAIN SCORE: 0/10 LOCATION: Bilateral chest FINDINGS: Lungs are mildly hyperaerated. Stable calcified granuloma in the lateral left midlung measuring 7 mm . There is a new 4 mm calcification in the lower right lung probably representing granuloma. The re mainder of the lungs are clear. No focal infiltrates seen. The heart is normal in size. Both hemid iaphragms are well delineated. CONCLUSION: Bilateral pulmonary granulomata. The lungs are clear. Juan Antonio Arreola MD on July 25, 2017 at 1:22 Board Certified Radiologist. This report was verified electronically.
[2017-07-25 01:55] LABS: D-DIMER 0.52 MG/L FEU (0.00-0.50)
[2017-07-25 02:37] LABS: BILIRUBIN, URINE NEG (NEG); BLOOD, URINE NEG (NEG); GLUCOSE,URINE NEG (NEG); KETONE, URINE NEG (NEG); NITRITE,URINE NEG (NEG); PH, URINE 7.5 (5.0-8.5); URINE COLOR YELLOW (YELLW/STRAW); URINE LEUKOCYTE ESTERASE MOD (NEG)
[2017-07-25 02:41] LABS: RBC, URINE 0-2 /hpf (0-3)
[2017-07-25 02:42] LABS: BACTERIA, URINE OCC /hpf
[2017-07-25] MEDS ORDERED: IODIXANOL 320 MG/ML 10 ML VIAL (for Rad CT) IVCONTRAST ONE (03:00)
--- NOTE | 2017-07-25 03:06 | RADRPT ---
EXAM DATE/TIME: 07/25/2017 02:48 [facility] COMPARISON: No previous studies available for comparison. INDICATIONS : Shortness of breath since taking a flight; rule out pulmonary embolus. IV CONTRAST: 49 cc Visipaque (iodixanol) IV RADIATION DOSE: 7.75 CTDIvol (mGy) MEDICAL HISTORY : Hypertension. Hypercholesterolemia. Carcinoma, breast. SURGICAL HISTORY : None. ENCOUNTER: Initial ACUITY: 2 days PAIN SCALE: 0/10 LOCATION: chest TECHNIQUE: Volumetric scanning of the chest was performed using a pulmonary embolism protocol MIP images were re constructed. Using automated exposure control and adjustment of the mA and/or kV according to patien t size, radiation dose was kept as low as reasonably achievable to obtain optimal diagnostic quality images. DICOM format image data is available electronically for review and comparison. Follow-up recommendations for detected pulmonary nodules are based at a minimum on nodule size and pa tient risk factors according to Fleischner Society Guidelines. FINDINGS: PULMONARY ARTERIES: No filling defects are seen in the pulmonary arteries through the segmental level. LUNGS: There is no consolidation or pneumothorax . 7 mm densely calcified granuloma in the lateral left mid lung. No concerning pulmonary nodule is visualized. PLEURAE: There is no pleural thickening or pleural effusion. MEDIASTINUM: Several calcified left hilar lymph nodes measuring up to 9 mm. No evidence of new mediastinal adenop athy. Coronary artery calcifications. CONCLUSION: 1. The study is negative for pulmonary embolism. 2. Granulomatous calcifications in the left lung and left hilum. Juan Antonio Arreola MD on July 25, 2017 at 3:02 Board Certified Radiologist. This report was verified electronically.
[2017-07-25] MEDS ORDERED: NITROGLYCERIN 0.4 MG SL 25 TABS/BTL SL ONE (03:30)
[2017-07-25] MEDS ORDERED: NITROGLYCERIN 0.4 MG SL 25 TABS/BTL SL PRN (04:00)
[2017-07-25] MEDS ORDERED: SODIUM CHLORIDE 0.9% FLUSH 10 ML FLUSH IV FLUSH PRN (04:00)
[2017-07-25 04:12] LABS: TROPONIN I LESS THAN 0.02 NG/ML (0.02-0.05)
[2017-07-25] MEDS ORDERED: NITROFURANTOIN MONOHYD MACROCR 100 MG CAP PO ONE (04:30)
--- NOTE | 2017-07-25 08:01 | HHI.HP ---
HPI [facility] Primary [facility]ician No Primary Care Physician Admission Diagnosis dyspnea/angina equivalent Diagnoses: (1) Dyspnea Diagnosis: Principal (2) Anginal equivalent Diagnosis: Principal Chief Complaint: Shortness of breath and dyspnea Travel History International Travel<30 Days: No Contact w/Intl Traveler <30 Da: No Traveled to Known Affected Are: No History of Present Illness This 82-year-old female with known history of hypertension, hyperlipidemia, breast cancer who presented to the hospital because a 2 day history of shortness of breath, dyspnea. Patient did go to primary medical doctor's office yesterday for evaluation and was diagnosed with allergies and was started on inhaler and was to start using steroids this morning. However the patient's symptoms did not improve throughout yesterday so she came to emergency department for evaluation. She describes it as a shortness of breath , difficulty breathing, not getting enough air in. Whenever she describes that she actually puts her hand on the middle part of her chest. She denies any actual chest pain. Denies any nausea, vomiting, diaphoresis, lightheadedness, dizziness. Patient was placed on oxygen with minimal improvement of her discomfort. At the present time she is still experiencing the constant difficulty in breathing. Patient has has increased risk factors for underlying ischemia. Patient was recommended observation to the chest pain center for further evaluation and management. Patient has had recent travel to visit her granddaughter, she just got back in town. Review of Systems Respiratory: COMPLAINS OF: Shortness of breath Cardiovascular: COMPLAINS OF: Orthopnea Except as stated in HPI: all other systems reviewed are Neg Past Family Social History Past Medical History Hypertension Hyperlipidemia History of breast cancer Past Surgical History Partial hysterectomy Left breast lumpectomy Reported Medications Reported Meds & Active Scripts Active Pepcid (Famotidine) 20 Mg Tab 20 Mg PO BID Probiotic (Lactobacillus Acidophilus) 10 Billion Cell Cap 1 Cap PO TIDAC Reported B Complex (B-Complex Vitamins) 1 Cap 1 Cap PO DAILY Magnesium Oxide 250 Mg Tab 250 Mg PO DAILY Vitamin E 200 Unit Cap 400 Units PO DAILY Aspirin 81 Mg Chew 81 Mg CHEW DAILY Hydrochlorothiazide 25 Mg Tab 25 Mg PO DAILY Claritin (Loratadine) 10 Mg Tablet 12 Lipitor (Atorvastatin Calcium) 20 Mg Tab 20 Mg PO DAILY Lisinopril 10 Mg Tab 10 Mg PO BID Allergies: Coded Allergies: ciprofloxacin (Verified Allergy, Severe, Chest Pain, 07/25/17) high hr ipratropium (Verified Allergy, Severe, Rash, 07/25/17) peanut (Verified Allergy, Severe, 07/25/17) SOB penicillin G (Verified Allergy, Severe, HIVES, 07/25/17) sulfamethoxazole (Verified Allergy, Severe, 07/25/17) trimethoprim (Verified Allergy, Severe, 07/25/17) Family History Reviewed and significant for mother at age 92, has history of stroke. Father at age 98 with history of colon cancer Social History Patient denies any tobacco, alcohol or illicit drugs Physical Exam Vital Signs Vital Signs Date Time Temp Pulse Resp B/P (MAP) Pulse Ox O2 Delivery O2 Flow Rate FiO2 07/25/17 05:40 96.0 73 20 150/82 (104) 99 Automatic Cuff 07/25/17 05:32 20 134/76 (95) 98 Nasal Cannula 2.00 07/25/17 04:00 98 Nasal Cannula 2.00 07/25/17 03:58 86 20 144/72 (96) 98 Nasal Cannula 2.00 07/25/17 03:30 75 147/70 (95) 07/25/17 02:22 80 20 163/73 (103) 98 07/25/17 01:52 74 18 150/75 (100) 98 07/25/17 01:08 92 20 98 07/25/17 00:28 98 Nasal Cannula 2.00 07/25/17 00:27 97.0 96 20 170/84 (112) 07/25/17 00:07 97.8 86 20 187/80 (115) 96 Physical Exam GENERAL: Well-developed, well-nourished, in no acute distress. alert and orientated HEENT: Head is normocephalic without any lesions or masses noted. Facial features are symmetric. Eyes: Pupils equal round reactive to light. Extraocular muscles are intact. Conjunctivae were clear. Oropharyngeal: Pharynx without any erythema edema. Tongue is midline without deviation. Buccal mucosa is moist without any masses or lesions NECK: Supple without any masses. Trachea midline no deviation. No JVD, no bruits are appreciated CARDIAC: Regular rhythm, regular rate. S1/S2 are heard. No murmurs gallops or rubs. LUNGS: Clear to auscultation bilaterally. No wheeze, rhonchi or rales. No use of accessory muscles on inspiration or expiration. ABDOMEN: Soft, nontender. Nondistended. Bowel sounds heard in all 4 quadrants. No organomegaly or masses. Negative rebound, negative guarding EXTREMITIES: No edema, pulses are equal bilaterally. No cyanosis or clubbing NEUROLOGY: Mood and affect appear appropriate. Cranial nerves II through XII grossly intact. Muscle strength 5/5 in upper and lower extremities bilaterally. Deep tendon reflexes are 2+ in upper and lower extremities bilaterally. Laboratory Laboratory Tests Test 07/25/17 00:40 07/25/17 02:30 07/25/17 03:40 White Blood Count 7.0 Red Blood Count 3.77 Hemoglobin 11.6 Hematocrit 33.0 Mean Corpuscular Volume 87.5 Mean Corpuscular Hemoglobin 30.7 Mean Corpuscular Hemoglobin Concent 35.0 Red Cell Distribution Width 13.1 Platelet Count 313 Mean Platelet Volume 8.2 Neutrophils (%) (Auto) 65.4 Lymphocytes (%) (Auto) 23.4 Monocytes (%) (Auto) 9.5 Eosinophils (%) (Auto) 0.9 Basophils (%) (Auto) 0.8 Neutrophils # (Auto) 4.5 Lymphocytes # (Auto) 1.6 Monocytes # (Auto) 0.7 Eosinophils # (Auto) 0.1 Basophils # (Auto) 0.1 CBC Comment DIFF FINAL Differential Comment Prothrombin Time 9.6 Prothromb Time International Ratio 0.9 Activated Partial Thromboplast Time 25.0 D-Dimer Quantitative (PE/DVT) 0.52 Blood Urea Nitrogen 21 Creatinine 1.40 Random Glucose 119 Total Protein 7.0 Albumin 3.6 Calcium Level 9.0 Magnesium Level 2.8 Alkaline Phosphatase 95 Aspartate Amino Transf (AST/SGOT) 15 Alanine Aminotransferase (ALT/SGPT) 20 Total Bilirubin 0.4 Sodium Level 134 Potassium Level 3.8 Chloride Level 96 Carbon Dioxide Level 31.0 Anion Gap 7 Estimat Glomerular Filtration Rate 36 Total Creatine Kinase 67 73 Troponin I LESS THAN 0.02 LESS THAN 0.02 B-Type Natriuretic Peptide 34 Urine Color YELLOW Urine Turbidity CLEAR Urine pH 7.5 Urine Specific [place] 1.010 Urine Protein NEG Urine Glucose (UA) NEG Urine Ketones NEG Urine Occult Blood NEG Urine Nitrite NEG Urine Bilirubin NEG Urine Urobilinogen 0.2 Urine Leukocyte Esterase MOD Urine RBC 0-2 Urine WBC 9-14 Urine Squamous Epithelial Cells 6-8 Urine Bacteria OCC Microscopic Urinalysis Comment CULTURE INDICATED Date/Time Source Procedure Growth Status 07/25/17 02:30 Urine Clean Catch Urine Culture Pending Received Result Diagram: 07/25/173907/25/1739 Caprini VTE Risk Assessment Caprini VTE Risk Assessment: Mod/High Risk (score >= 2) Caprini Risk Assessment Model Point Value = 1 Point Value = 2 Point Value = 3 Point Value = 5 Age 41-60 Minor surgery BMI > 25 kg/m2 Swollen legs Varicose veins or History of unexplained or recurrent spontaneous Oral contraceptives or hormone replacement Sepsis (< 1 month) Serious lung disease, including pneumonia (< 1 month) Abnormal pulmonary function Acute myocardial infarction Congestive heart failure (< 1 month) History of inflammatory bowel disease Medical patient at bed rest Age 61-74 Arthroscopic surgery Major open surgery (> 45 min) Laparoscopic surgery (> 45 min) Malignancy Confined to bed (> 72 hours) Immobilizing plaster cast Central venous access Age >= 75 History of VTE Family history of VTE Factor V Leiden Prothrombin [id number] Lupus anticoagulant Anticardiolipin antibodies Elevated serum homocysteine Heparin-induced thrombocytopenia Other congenital or acquired thrombophilia Stroke (< 1 month) Elective arthroplasty Hip, pelvis, or leg fracture Acute spinal cord injury (< 1 month) Prophylaxis Regimen Total Risk Factor Score Risk Level Prophylaxis Regimen 0-1 Low Early ambulation 2 Moderate Order ONE of the following: *Sequential Compression Device (SCD) *Heparin 5000 units SQ BID 3-4 Higher Order ONE of the following medications: *Heparin 5000 units SQ TID *Enoxaparin/Lovenox 40 mg SQ daily (WT < 150 kg, CrCl > 30 mL/min) *Enoxaparin/Lovenox 30 mg SQ daily (WT < 150 kg, CrCl > 10-29 mL/min) *Enoxaparin/Lovenox 30 mg SQ BID (WT < 150 kg, CrCl > 30 mL/min) AND/OR *Sequential Compression Device (SCD) 5 or more Highest Order ONE of the following medications: *Heparin 5000 units SQ TID (Preferred with Epidurals) *Enoxaparin/Lovenox 40 mg SQ daily (WT < 150 kg, CrCl > 30 mL/min) *Enoxaparin/Lovenox 30 mg SQ daily (WT < 150 kg, CrCl > 10-29 mL/min) *Enoxaparin/Lovenox 30 mg SQ BID (WT < 150 kg, CrCl > 30 mL/min) AND *Sequential Compression Device (SCD) Assessment and Plan Assessment and Plan Shortness of breath, orthopnea, dyspnea. Patient with increased risk factors to include age, hypertension, hyperlipidemia, postmenopausal without exogenous hormones Patient presenting symptoms could be a angina component. Will need further evaluation Chest x-ray and pulmonary angiogram do not indicate any acute abnormality Patient had been ruled out for acute coronary event with serial cardiac enzymes are negative Serial EKGs which were reviewed by myself showed sinus rhythm without any changes Myocardial perfusion study was performed and did not indicate any ischemia, low risk Continue aspirin, nitroglycerin as needed, oxygen, pain control Duo nebs as needed Hypertension, hyper lipidemia Home medications have been continued Abnormal urinalysis There were increased WBCs, however significant epithelial cells suggesting contamination Patient was given Macrobid in the emergency department Await cultures for any antibiotic treatment DVT prevention Sequential compression devices Discharge disposition Discharge home in stable condition Activity: Ad mary. Diet: Healthy heart diet Medication per medication reconciliation Follow-up with primary medical doctor in 1 week Problem Qualifiers (1) Dyspnea: Qualified Codes: R06.02 - Shortness of breath Raj Mesa Jul 25, 2017 08:01
[2017-07-25] MEDS ORDERED: RESP: ALBUTEROL 1.25 MG/3 ML NEB (PRN) NEB (08:30)
[2017-07-25 08:33] LABS: TROPONIN I LESS THAN 0.02 NG/ML (0.02-0.05)
[2017-07-25] MEDS ORDERED: ASPIRIN 81 MG CHEW TAB CHEW SCH (09:00)
[2017-07-25] MEDS ORDERED: ATORVASTATIN 20 MG TAB PO SCH (09:00)
[2017-07-25] MEDS ORDERED: LISINOPRIL 10 MG TAB PO SCH (09:00)
[2017-07-25] MEDS ORDERED: FAMOTIDINE 20 MG TAB PO SCH ×2 (09:00)
[2017-07-25] MEDS ORDERED: ASPIRIN 325 MG TAB PO SCH (09:00)
[2017-07-25] MEDS ORDERED: HYDROCHLOROTHIAZIDE 25 MG TAB PO SCH (09:00)
[2017-07-25] MEDS ORDERED: SODIUM CHLORIDE 0.9% FLUSH 10 ML FLUSH IV FLUSH SCH (09:00)
--- NOTE | 2017-07-25 09:02 | EKG ---
Date Performed: 07/25/2017 Time Performed: 03:44:05 PTAGE: 82 years EKG: Sinus rhythm LOW QRS VOLTAGE IN PRECORDIAL LEADS BORDERLINE ECG PREVIOUS TRACING : 07/25/2017 00.32 Since the prior tracing, there has been no significant bansal DOCTOR: Lesley Horne Interpretating Date/Time 07/25/2017 09:00:36
--- NOTE | 2017-07-25 09:02 | EKG ---
Date Performed: 07/25/2017 Time Performed: 00:32:01 PTAGE: 82 years EKG: Sinus rhythm POSSIBLE LEFT ATRIAL ENLARGEMENT LOW QRS VOLTAGE IN PRECORDIAL LEADS BORDERLINE ECG PREVIOUS TRACING : 05/05/2017 23.03 Since the prior tracing, there has been no significant bansal DOCTOR: Lesley Horne Interpretating Date/Time 07/25/2017 09:00:27
[2017-07-25] MEDS ORDERED: REGADENOSON INJ 0.4 MG/5 ML SYR IV ONE (12:21)
[2017-07-25] MEDS ORDERED: ACETAMINOPHEN 325 MG TAB PO PRN (13:45)
--- NOTE | 2017-07-25 14:12 | RADRPT ---
EXAM DATE/TIME: 07/25/2017 12:09 [place] COMPARISON: No previous studies available for comparison. INDICATIONS : Angina. DOSE: 26.1 mCi Tc99m Myoview at stress. 8.2 mCi Tc99m Myoview at rest. 0.4 mg Lexiscan STRESS SYMPTOMS: Flushed feeling. EJECTION FRACTION: > 70% MEDICAL HISTORY : Hypertension. Carcinoma, breast. SURGICAL HISTORY : Inguinal hernia repair. Left breast lumpectomy. ENCOUNTER: Initial ACUITY: 2 days PAIN SCALE: 3/10 LOCATION: Bilateral chest TECHNIQUE: The patient underwent pharmacologic stress with infusion of prescribed dose. Continuous ECG tracing was monitored during stress. Gated SPECT imaging was performed after stress and conventional SPECT i maging was performed at rest. The examination was performed on a SPECT/CT scanner, both attenuation and non-corrected datasets were reviewed. FINDINGS: DISTRIBUTION: The maximum perfused segment at stress is in the anterior wall. PERFUSION STUDY: The pattern of perfusion at stress is within normal limits. GATED STUDY: There is intact wall motion and thickening without hypokinetic or dyskinetic segments. CONCLUSION: Normal examination. RISK CATEGORY: Low (<1% Annual Mortality Rate) Mychal Alfaro MD on July 25, 2017 at 14:08 Board Certified Radiologist. This report was verified electronically.
--- NOTE | 2017-07-25 14:18 | HHI.DCPOC ---
Discharge Care Plan Diagnosis: (1) Anginal equivalent (2) Dyspnea Goals to Promote Your Health * To prevent worsening of your condition and complications * To maintain your health at the optimal level Directions to Meet Your Goals Take your medications as prescribed Follow your dietary instruction Follow activity as directed Keep your appointments as scheduled Take your immunizations and boosters as scheduled If your symptoms worsen call your PCP, if no PCP go to Urgent Care Center or Emergency Room Smoking is Dangerous to Your Health. Avoid second hand smoke Call the 24-hour hour crisis hotline for domestic abuse at [place] Jul 25, 2017 14:17
--- NOTE | 2017-07-26 10:13 | EKG ---
Date Performed: 07/25/2017 Time Performed: 08:05:02 PTAGE: 82 years EKG: Sinus rhythm NORMAL ECG PREVIOUS TRACING : 07/25/2017 03.44 DOCTOR: Edmund Ramirez Interpretating Date/Time 07/26/2017 10:12:23
--- NOTE | 2017-07-26 16:50 | TR ---
Date Performed: 07/25/2017 Time Performed: 12:35:42 DOCTOR: Marc Amin DRUG LIST: CLINICAL HISTORY: REASON FOR TEST: REASON FOR ENDING: OBSERVATION: CONCLUSION: Lexiscan stress test was performed under standard four minute protocol. Radionuclide was injected one minute prior to ending the test. No electrocardiographic abormalities were present to suggest ischemia. Nuclear imaging and interpretation are pending. COMMENTS:
== END 2017-07-25 15:52 | disposition home or self-care (01) ==
LOC: PHED 00:02 → PHEDA 03:51 → PH3A 05:26
PROVIDERS: ADMIT Family Medicine; ATTEND Family Medicine
DX: R06.02 Shortness of breath (principal); I20.8 Other forms of angina pectoris; I10 Essential (primary) hypertension; E78.00 Pure hypercholesterolemia, unspecified; R82.90 Unspecified abnormal findings in urine; Z85.3 Personal history of malignant neoplasm of breast; Z79.899 Other long term (current) drug therapy; Z79.82 Long term (current) use of aspirin
CPT/HCPCS: 71045; 71275; 78452; 80053; 81001; 82550; 83735; 83880; 84484; 85025; 85379; 85610; 85730; 87086; 93005; 93017; 99285; A9502; G0378; J2785; Q9967